=== PATIENT | male | born 1995 | race Caucasian/White ===

== ENCOUNTER 2020-10-12 21:14 | Emergency (ER) | payer BC ==
[2020-10-12 21:22] VITALS: PULSE 72; RESP 18; TEMP 98.2
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
--- NOTE | 2020-10-12 22:59 | XR ---
EXAMINATION TYPE: XR knee complete LT DATE OF EXAM: 10/12/2020 COMPARISON: NONE HISTORY: Knee pain TECHNIQUE: 3 views FINDINGS: There is small knee joint effusion. I see no fracture nor dislocation. The joint spaces are normal. IMPRESSION: Negative left knee exam. No fracture.
[2020-10-12] MEDS ORDERED: IBUPROFEN 600 MG STARTER PACK 4 TAB BTL PO STA (23:56)
[2020-10-12] MEDS ORDERED: traMADol 50 MG TAB PO STA (23:56)
[2020-10-12] MEDS ORDERED: traMADol 50 MG STARTER PACK 3 TAB BTL PO STA (23:56)
[2020-10-13 00:30] VITALS: BP 134/86
== END 2020-10-13 00:30 | disposition home or self-care (01) ==
LOC: EC 21:14
DX: S86.912A Strain of unspecified muscle(s) and tendon(s) at lower leg level, left leg, initial encounter (principal); W22.8XXA Striking against or struck by other objects, initial encounter
CPT/HCPCS: 73562; 99283; L1830